=== PATIENT | female | born 1960 | race Hispanic/Latino ===

== ENCOUNTER 2021-01-02 06:43 | Day surgery (SDC) | payer OTHER ==
[2021-01-01 11:53] LABS: BASOPHILS % (AUTO) 0.5 % (0.0-5.0); MEAN CORPUSCULAR HEMOGLOBIN 31.8 pg (27.0-33.0); MEAN CORPUSCULAR HGB CONC 32.7 g/dL (32.0-36.0); MEAN CORPUSCULAR VOLUME 97.4 fL (79-99); MONOCYTES % (AUTO) 9.1 % (3.0-13.0); NEUTROPHILS % (AUTO) 68.7 % (40.0-77.0); PLATELET COUNT (AUTO) 225 K/uL (130-400); RED BLOOD CELL COUNT(AUTO) 4.62 MIL/uL (4.00-5.50); RED CELL DISTRIBUTION WIDTH 13.3 % (11.0-15.5); WHITE BLOOD COUNT (AUTO) 7.5 K/uL (4.8-10.8)
[2021-01-01 12:02] LABS: CREATININE 0.6 mg/dL (0.5-1.5); POTASSIUM 4.3 mmol/L (3.5-5.1)
[2021-01-01 12:05] LABS: INR 0.98 (0.85-1.15); PROTHROMBIN TIME 10.7 SEC (9.6-11.6)
[2021-01-01 12:06] VITALS: BP 143/81
[2021-01-01 12:06] LABS: PARTIAL THROMBOPLASTIN TIME 34.4 SEC (26.3-35.5)
[2021-01-02] VITALS (8 sets, daily range): BP systolic 124–139; BP diastolic 60–89
[~2021-01-02] VITALS: Ht 167.6 cm; Wt 131.9 kg
[~2021-01-02 06:43] MED LIST: 0.9% NACL 500ML IV.SOLN 500 ML IV SCH; AEC81 PO; ATOR40TA69 PO; CARV6.25 PO; CLOP75TA32 PO; FURO20TA4 PO; INSULIN SQ; LEVO112T7 PO; LOSA25TA41 PO; METF-446 PO; MONT-39 PO; VERA180T60 PO
[2021-01-02] MEDS ORDERED: 0.9%NACL 1000ML 1,000 ML IV ONE (07:17)
[2021-01-02] MEDS ORDERED: MIDAZOLAM HCL 1 MG/ML 2ML VIAL ONE ×2 (09:52→10:56)
[2021-01-02] MEDS ORDERED: MEPERIDINE-PF 25 MG/ML SYG ONE ×3 (09:52→12:21)
[2021-01-02] MEDS ORDERED: LIDOCAINE HCL 400MG/20ML VIAL ONE ×2 (09:52→10:36)
[2021-01-02] MEDS ORDERED: HEPARIN 10,000 UNIT/10ML (1,000 UNIT/ML) VIAL ONE (09:53)
[2021-01-02] MEDS ORDERED: ISOPROTERENOL HCL 0.2 MG/ML AMP/VIAL/BAG ONE ×2 (11:16→12:15)
== END 2021-01-02 16:20 | disposition home or self-care (01) ==
LOC: DAH 06:43
PROVIDERS: ATTEND Internal Medicine Cardiovascular Disease
DX: I47.1 Supraventricular tachycardia (principal); I44.7 Left bundle-branch block, unspecified; I10 Essential (primary) hypertension; E11.9 Type 2 diabetes mellitus without complications; G47.33 Obstructive sleep apnea (adult) (pediatric); J45.909 Unspecified asthma, uncomplicated; Z95.2 Presence of prosthetic heart valve; Z79.01 Long term (current) use of anticoagulants; Z79.899 Other long term (current) drug therapy; Z98.890 Other specified postprocedural states
CPT/HCPCS: 36415; 80048; 82948 ×2; 85025; 85610; 85730; 93005; 93613; 93621; 93623; 93653; A4215 ×2; A4216; A4221; A4222; A4223 ×3; A4649 ×2; A4663; C1730 ×4; C1731; C1894 ×5; J1644 ×2; J2175 ×3; J2250 ×2; J3490 ×4; J7030 ×2; 99156; 99157

== ENCOUNTER 2023-11-27 18:04 | Inpatient (IN) | payer OTHER ==
[~2023-11-27 18:04] MED LIST changes: -0.9% NACL 500ML IV.SOLN 500 ML IV SCH
[2023-11-27 19:55] VITALS: BP 114/48; PULSE 100; RESP 20; TEMP 98; O2SAT 96
[2023-11-27 20:48] VITALS: PULSE 98; RESP 24; O2SAT 98
[2023-11-27] MEDS ORDERED: acetaMINOPHEN 650 MG SUPPOSITORY RC PRN (21:00)
[2023-11-27] MEDS ORDERED: hydrALAZine 20MG/ML VIAL IV PRN (21:00)
[2023-11-27] MEDS ORDERED: doCUSate SODIUM 100 MG CAP PO PRN (21:00)
[2023-11-27] MEDS ORDERED: LACTULOSE 20 GM/30 ML UDCUP PO PRN (21:00)
[2023-11-27 22:20] LABS: ABG BASE EXCESS 8.3 mmol/L (-2.0-3.0); ABG HCO3 32.8 mmol/L (21.0-28.0); ABG OXYGEN SATURATION 93.1 % (94.0-98.0); ABG PCO2 45 mmHg (32-45); ABG PH 7.484 (7.350-7.450); CARBON MONOXIDE 1.5 % (0.5-1.5); DEVICE COMMENT RR RN ED; HHb 6.8; PO2, ARTERIAL BG 67.4 mmHg (83.0-108.0); VENT MODE, BG NC (ROOM AIR)
[2023-11-27 22:30] LABS: HEMATOCRIT 37.6 % (36-48); MEAN CORPUSCULAR HGB CONC 32.4 g/dL (32.0-36.0); MEAN CORPUSCULAR VOLUME 92.4 fL (79-99); RED BLOOD CELL COUNT(AUTO) 4.07 MIL/uL (4.00-5.50); WHITE BLOOD COUNT (AUTO) 12.6 K/uL (4.8-10.8)
[2023-11-27] MEDS: furoSEMIDE 40MG VIAL IV SCH (22:47)
[2023-11-27 22:49] LABS: ALBUMIN 3.2 g/dL (3.5-5.0); BILIRUBIN,TOTAL 0.8 mg/dL (0.2-1.0); CREATININE 0.9 mg/dL (0.5-1.0); TOTAL PROTEIN, SERUM 7.2 g/dL (6.0-8.3)
[2023-11-27] MEDS: INSULIN humuLIN R 100 UNIT/ML 3ML SQ SCH (23:15)
[2023-11-27 23:37] VITALS: PULSE 94; RESP 20; O2SAT 100
[2023-11-27 23:40] VITALS: BP 125/42; PULSE 94; RESP 22; TEMP 98.6
[2023-11-27 23:43] VITALS: PULSE 90; RESP 20
[2023-11-27] MEDS: IpraTROPium 0.5 MG/2.5 ML INH IH SCH (23:43)
[2023-11-28] VITALS (47 sets, daily range): BP systolic 85–128; BP diastolic 35–55; PULSE 88–109; RESP 14–38; TEMP 97.2–98.6; O2SAT 96–99
[2023-11-28 02:00] LABS: BASOPHILS # (AUTO) 0.06 K/uL (0.00-0.20); BASOPHILS % (AUTO) 0.5 % (0.0-5.0); EOSINOPHILS # (AUTO) 0.36 K/uL (0.00-0.70); IMMATURE GRANULOCYTE ABSOLUTE 0.13 K/uL (0-1); LYMPHOCYTES % (AUTO) 8.2 % (21.0-51.0); MEAN CORPUSCULAR HEMOGLOBIN 29.8 pg (27.0-33.0); MEAN CORPUSCULAR HGB CONC 31.9 g/dL (32.0-36.0); MEAN CORPUSCULAR VOLUME 93.4 fL (79-99); MONOCYTES % (AUTO) 8.6 % (3.0-13.0); NEUTROPHILS # (AUTO) 9.5 K/uL (1.8-7.7); NEUTROPHILS % (AUTO) 78.6 % (40.0-77.0); PLATELET COUNT (AUTO) 248 K/uL (130-400); RED BLOOD CELL COUNT(AUTO) 3.96 MIL/uL (4.00-5.50); RED CELL DISTRIBUTION WIDTH 15.1 % (11.0-15.5); WHITE BLOOD COUNT (AUTO) 12.1 K/uL (4.8-10.8)
[2023-11-28 02:22] LABS: CREATININE 0.9 mg/dL (0.5-1.0); MAGNESIUM 2.1 mg/dL (1.80-2.40); PHOSPHORUS 3.5 mg/dL (2.5-4.9); POTASSIUM 3.7 mmol/L (3.5-5.1); THYROID STIMULATING HORMONE 1.93 uIU/mL (0.36-3.74)
[2023-11-28] MEDS: acetaMINOPHEN 325 MG TAB PO PRN (02:28)
[2023-11-28 02:31] LABS: HEMOGLOBIN A1C 6.8 % (4.0-6.0)
[2023-11-28] MEDS ORDERED: LOSA-417 PO (04:49)
[2023-11-28] MEDS ORDERED: ROSU40 PO (04:49)
[2023-11-28] MEDS ORDERED: DOCU100C33 PO (04:49)
[2023-11-28] MEDS ORDERED: LEVO175C2 PO (04:49)
[2023-11-28] MEDS ORDERED: METF-446 PO (04:49)
[2023-11-28] MEDS ORDERED: INSU3INS9 SQ (04:49)
[2023-11-28] MEDS ORDERED: DRON400T7 PO (04:49)
[2023-11-28] MEDS ORDERED: DAPA5TAB PO (04:49)
[2023-11-28] MEDS ORDERED: SPIR25TA PO (04:49)
[2023-11-28] MEDS ORDERED: FURO20TA6 PO (04:49)
[2023-11-28] MEDS ORDERED: CLOP-31 PO (04:49)
[2023-11-28] MEDS ORDERED: ORPH100 PO (04:49)
[2023-11-28] MEDS ORDERED: [UNRECOGNIZED DRUG - CODE] PO (04:49)
[2023-11-28] MEDS ORDERED: MONT-46 PO (04:49)
[2023-11-28] MEDS ORDERED: SACU1TAB PO (04:49)
[2023-11-28] MEDS ORDERED: NON-FORMULARY MEDICATION 1 EACH (Levothyroxine Sodium (Levothyroxine) 175 MCG) PO SCH (07:30)
[2023-11-28] MEDS ORDERED: LoSARTan 25 MG TABLET PO SCH (09:00)
[2023-11-28] MEDS ORDERED: DRONEDARONE HYDROCHLORIDE 400 MG TABLET PO SCH (09:00)
[2023-11-28] MEDS: DRONEDARONE HYDROCHLORIDE 400 MG TABLET PO SCH (09:17)
[2023-11-28] MEDS: doCUSate SODIUM 100 MG CAP PO SCH (09:17)
[2023-11-28] MEDS: cloPIDOgrel 75MG TAB PO SCH (09:17)
[2023-11-28] MEDS: HEParin 5,000 UNIT VIAL SQ SCH (09:18)
[2023-11-28] MEDS ORDERED: IOHEXOL-350 50ML VIAL IV ONE (12:23)
[2023-11-28] MEDS ORDERED: BIVALIRUDIN 250 MG/VIAL IV ONE (12:23)
[2023-11-28] MEDS ORDERED: LIDOCAINE HCL 400MG/20ML VIAL ONE (12:23)
[2023-11-28] MEDS ORDERED: IOHEXOL 350 MG/ML 100ML INFUS..BTL IV ONE (12:23)
[2023-11-28] MEDS ORDERED: NITROGLYCERIN 50MG VIAL ONE (12:24)
[2023-11-28] MEDS ORDERED: HEParin 10,000 UNIT/10ML (1,000 UNIT/ML) VIAL ONE (12:24)
[2023-11-28] MEDS ORDERED: HEParin-NS 1,000 UNIT/500 ML 1,000 ML IV ONE (12:24)
[2023-11-28] MEDS ORDERED: furoSEMIDE 40MG VIAL ONE (12:35)
[2023-11-28] MEDS ORDERED: morPHINE 4 MG SYG ONE ×2 (13:20→13:26)
[2023-11-28] MEDS ORDERED: NITROGLYCERIN 50MG/D5W 250ML 250 BOT IV SCH (14:00)
[2023-11-28] MEDS: MILRINONE-D5W 20 MG/100 ML 100 ML IV SCH (14:58)
[2023-11-28] MEDS: ondanSETRON 4MG INJ IVP PRN (16:45)
[2023-11-28] MEDS: BUMETANIDE 2.5MG/10ML (DRIP) 40 ML IV SCH (17:34)
[2023-11-28] MEDS: monteLUKAST sodIUM 10 MG TAB PO SCH (20:31)
[2023-11-28] MEDS: TEMAZepam 15 MG CAPSULE PO PRN (20:31)
[2023-11-28] MEDS: atorVAStatin 40 MG TABLET PO SCH (20:31)
[2023-11-28 22:48] LABS: MAGNESIUM 1.9 mg/dL (1.80-2.40); POTASSIUM 3.4 mmol/L (3.5-5.1)
[2023-11-28] MEDS: MAGNESIUM 2GM PREMIX 50ML 50 ML IV STA (23:27)
[2023-11-29] VITALS (76 sets, daily range): BP systolic 76–126; BP diastolic 28–74; PULSE 83–163; RESP 14–56; TEMP 97.9–98.9; O2SAT 95–98
[2023-11-29] MEDS ORDERED: MAGNESIUM 2GM PREMIX 50ML 50 ML IV PRN (00:30)
[2023-11-29] MEDS ORDERED: PoTASSium chl 10% ELIXIR 20MEQ 20 MEQ/15 ML UDCUP PO PRN (00:30)
[2023-11-29] MEDS ORDERED: PoTASSium chloRIDE 20MEQ/100ML 100 ML IV PRN (00:30)
[2023-11-29] MEDS: PoTASSium chloRIDE 20MEQ ER 20 MEQ ERTAB PO PRN (01:39)
[2023-11-29] MEDS: PoTASSium chloRIDE 10MEQ/100ML 100 ML IV PRN (02:35)
[2023-11-29 04:10] LABS: BASOPHILS # (AUTO) 0.06 K/uL (0.00-0.20); BASOPHILS % (AUTO) 0.5 % (0.0-5.0); EOSINOPHILS # (AUTO) 0.59 K/uL (0.00-0.70); HEMATOCRIT 34.6 % (36-48); IMMATURE GRANULOCYTE ABSOLUTE 0.12 K/uL (0-1); LYMPHOCYTES # (AUTO) 0.9 K/uL (1.0-4.8); LYMPHOCYTES % (AUTO) 7.4 % (21.0-51.0); MEAN CORPUSCULAR HEMOGLOBIN 29.9 pg (27.0-33.0); MEAN CORPUSCULAR HGB CONC 31.8 g/dL (32.0-36.0); MONOCYTES # (AUTO) 1.3 K/uL (0.1-1.0); MONOCYTES % (AUTO) 10.8 % (3.0-13.0); NEUTROPHILS # (AUTO) 8.9 K/uL (1.8-7.7); NEUTROPHILS % (AUTO) 75.3 % (40.0-77.0); PLATELET COUNT (AUTO) 198 K/uL (130-400); RED BLOOD CELL COUNT(AUTO) 3.68 MIL/uL (4.00-5.50); RED CELL DISTRIBUTION WIDTH 14.7 % (11.0-15.5); WHITE BLOOD COUNT (AUTO) 11.8 K/uL (4.8-10.8)
[2023-11-29 04:28] LABS: CREATININE 0.9 mg/dL (0.5-1.0); MAGNESIUM 2.5 mg/dL (1.80-2.40); PHOSPHORUS 3.7 mg/dL (2.5-4.9); POTASSIUM 3.4 mmol/L (3.5-5.1)
[2023-11-29] MEDS: levoTHYROxine 75 MCG TABLET PO SCH (06:30)
[2023-11-29] MEDS: levoTHYROxine 100 MCG TABLET PO SCH (09:45)
[2023-11-29 10:18] LABS: POTASSIUM 3.5 mmol/L (3.5-5.1)
[2023-11-29 10:23] LABS: ALBUMIN 2.9 g/dL (3.5-5.0); BILIRUBIN,TOTAL 0.9 mg/dL (0.2-1.0); TOTAL PROTEIN, SERUM 6.6 g/dL (6.0-8.3)
[2023-11-29] MEDS: metoPROLOL tartRATE 1 MG/ML 5ML VIAL IV PRN (12:42)
[2023-11-29] MEDS: INSULIN humuLIN R 100 UNIT/ML 3ML SQ SCH (17:05)
[2023-11-29] MEDS: INSULIN GLARgine 100 UNITS/ML 10 ML VIAL SQ SCH (17:13)
[2023-11-29] MEDS: ALBUTEROL 0.083% 2.5 MG/3 ML INH IH PRN (20:11)
[2023-11-30] VITALS (15 sets, daily range): BP systolic 102–157; BP diastolic 44–60; PULSE 80–105; RESP 18–23; TEMP 97.9–98.9; O2SAT 93–98
[2023-11-30 03:46] LABS: BASOPHILS # (AUTO) 0.05 K/uL (0.00-0.20); BASOPHILS % (AUTO) 0.4 % (0.0-5.0); EOSINOPHILS # (AUTO) 0.61 K/uL (0.00-0.70); EOSINOPHILS % (AUTO) 5.5 % (0.0-8.0); HEMATOCRIT 35.7 % (36-48); IMMATURE GRANULOCYTE ABSOLUTE 0.14 K/uL (0-1); LYMPHOCYTES % (AUTO) 9.2 % (21.0-51.0); MEAN CORPUSCULAR HEMOGLOBIN 29.9 pg (27.0-33.0); MEAN CORPUSCULAR HGB CONC 31.7 g/dL (32.0-36.0); MEAN CORPUSCULAR VOLUME 94.4 fL (79-99); MONOCYTES # (AUTO) 1.2 K/uL (0.1-1.0); MONOCYTES % (AUTO) 10.8 % (3.0-13.0); NEUTROPHILS # (AUTO) 8.1 K/uL (1.8-7.7); NEUTROPHILS % (AUTO) 72.8 % (40.0-77.0); PLATELET COUNT (AUTO) 219 K/uL (130-400); RED BLOOD CELL COUNT(AUTO) 3.78 MIL/uL (4.00-5.50); WHITE BLOOD COUNT (AUTO) 11.2 K/uL (4.8-10.8)
[2023-11-30 04:18] LABS: POTASSIUM 3.4 mmol/L (3.5-5.1)
[2023-11-30] MEDS: IpraTROPium 0.5 MG/2.5 ML INH IH PRN (07:01)
[2023-11-30] MEDS: BUMETANIDE 1MG/4ML VIAL IV ONE (10:30)
[2023-11-30] MEDS: MILRINONE-D5W 20 MG/100 ML 100 ML IV SCH (13:03)
[2023-11-30] MEDS: BUMETANIDE 2.5MG/10ML (DRIP) 40 ML IV SCH (15:14)
[2023-11-30] MEDS ORDERED: BUMETANIDE 1MG/4ML VIAL IVP SCH (21:00)
== END 2023-11-30 21:12 | disposition short-term general hospital (02) | DRG 280 ==
LOC: 2AH 19:39 → 2CH 11-28 14:05 → 2DH 11-29 14:34
PROVIDERS: ADMIT Internal Medicine; ATTEND Internal Medicine
PROC: 5A09357 Assistance with Respiratory Ventilation, Less than 24 Consecutive Hours, Continuous Positive Airway Pressure (ICD-10-PCS; principal; 2023-11-28)
PROC: 5A09357 Assistance with Respiratory Ventilation, Less than 24 Consecutive Hours, Continuous Positive Airway Pressure (ICD-10-PCS; 2023-11-29)
PROC: 5A09357 Assistance with Respiratory Ventilation, Less than 24 Consecutive Hours, Continuous Positive Airway Pressure (ICD-10-PCS; 2023-11-30)
DX: I35.1 Nonrheumatic aortic (valve) insufficiency (principal); J96.01 Acute respiratory failure with hypoxia; I21.4 Non-ST elevation (NSTEMI) myocardial infarction; I47.19 Other supraventricular tachycardia; Z68.42 Body mass index [BMI] 45.0-49.9, adult; E11.65 Type 2 diabetes mellitus with hyperglycemia; G47.33 Obstructive sleep apnea (adult) (pediatric); I48.91 Unspecified atrial fibrillation; E87.6 Hypokalemia; E03.9 Hypothyroidism, unspecified; E66.01 Morbid (severe) obesity due to excess calories; E78.00 Pure hypercholesterolemia, unspecified; I10 Essential (primary) hypertension; J44.89 Other specified chronic obstructive pulmonary disease; I44.7 Left bundle-branch block, unspecified; I25.10 Atherosclerotic heart disease of native coronary artery without angina pectoris; Z91.199 Patient's noncompliance with other medical treatment and regimen due to unspecified reason; Z95.1 Presence of aortocoronary bypass graft; Z95.3 Presence of xenogenic heart valve; Z90.710 Acquired absence of both cervix and uterus; Z79.82 Long term (current) use of aspirin; Z79.02 Long term (current) use of antithrombotics/antiplatelets; Z79.899 Other long term (current) drug therapy
CPT/HCPCS: 36415; 36600; 71045; 80048; 80053; 82435; 82803; 82947; 82948; 83036; 83605; 83735; 83880; 84100; 84132; 84295; 84443; 84484; 85018; 85025; 85027; 87040; 93306; 94640; 94660; C1894; G0378; J0583; J1644; J1815; J1940; J2260; J2270; J2405; J3475; J3480; J3490; Q9967; Q9965